=== PATIENT | female | born 1950 | race Caucasian/White ===

== ENCOUNTER → 2017-08-02 | Outpatient (CLI) | payer OTHER ==
[~2017-08-02] MED LIST: FISH OIL 1,0001 EAC5 PO; FOSAMAX 70 MG T70 M1 PO; HYDROCODONE-AP1 EAC6 PO; LISINOPRIL2.5 MG PO; MULTIVITAMINS PO; NAPROSYN500 MG PO; PRINZIDE 20-121 EACH PO; ULTRAM ER100 MG; VYTORIN 10-401 EACH PO; VYTORIN 10-801 EACH PO
--- NOTE | ~2017-08-02 | 2DMMODE ---
[facility] [address] [place] [address] 2 D/M-MODE ECHOCARDIOGRAM Name: RICHELLE RENE Room #: REG [facility]#: [id number] Admission: 08/02/17 Attend Phys: Joseph Uriostegui MD Discharge: Date of : 52 Date of Service: 08/02/17 1234 Report #: [id number] THIS REPORT FOR: //name// APPROVED REPORT Study performed: 08/02/2017 10:54:24 EXAM: Comprehensive 2D, Doppler, and color-flow Echocardiogram Patient Location: Out-Patient Status: routine BSA: 1.52 HR: 86 bpm BP: 176/96 mmHg Rhythm: NSR Other Information Study Quality: Good Indications Positive calcium score scan, HTN 2D Dimensions RVDd: 26.86 mm LVEF(%): 62.84 (>50%) IVSd: 10.10 (7-11mm) LVOT Diam: 19.65 (18-24mm) LVDd: 39.97 mm PWd: 10.05 (7-11mm) Ascending Ao: 28.57 (22-36mm) LVDs: 26.57 (25-40mm) Aortic Root: 27.64 mm Parish's LVEF: 62.84 % Volumes Left Atrial Volume (Systole) Single Plane 4CH: 18.39 mL Single Plane 2CH: 24.45 mL LA ESV Index: 15.00 mL/m2 Aortic Valve AoV Peak Tank.: 1.59 m/s AO Peak Gr.: 10.08 mmHg LVOT Max P.84 mmHg LVOT Max V: 1.21 m/s GEORGINA Vmax: 2.31 cm2 Mitral Valve E/A Ratio: 0.8 MV Decel. Time: 130.68 ms [facility] [address] [place] [address] 2 D/M-MODE ECHOCARDIOGRAM Name: RICHELLE RENE Room #: [facility]#: [id number] Admission: 08/02/17 Attend Phys: Joseph Uriostegui MD Discharge: Date of : 52 Date of Service: 08/02/17 1234 Report #: [id number] MV E Max Tank.: 0.71 m/s MV A Tank.: 0.87 m/s MV PHT: 37.90 ms IVRT: 69.20 ms Pulmonary Valve PV Peak Tank.: 1.00 m/s PV Peak Gr.: 4.00 mmHg Pulmonary Vein P Vein S: 0.64 m/s P Vein A: 0.33 m/s P Vein D: 0.37 m/s P Vein A Dur.: 103.8 msec P Vein S/D Ratio: 1.73 Tricuspid Valve TR Peak Tank.: 2.09 m/s RAP Estimate: 5.00 mmHg TR Peak Gr.: 17.44 mmHg PA Pressure: 22.00 mmHg Left Ventricle The left ventricle is normal size. There is normal LV segmental wall motion. There is normal left ventricular wall thickness. Left ventricular systolic function is normal. LVEF is 55-60%. Mild diastolic dysfunction is present (impaired relaxation pattern). Right Ventricle The right ventricle is normal size. The right ventricular systolic function is normal. Atria The left atrium size is normal. The right atrium size is normal. Aortic Valve The aortic valve is normal in structure. No aortic regurgitation is present. There is no aortic valvular stenosis. Mitral Valve The mitral valve is normal in structure. There is no mitral valve regurgitation noted. No evidence of mitral valve stenosis. Tricuspid Valve The tricuspid valve is normal in structure. Trace tricuspid regurgitation. Estimated PAP is 20-25mmHg. Pulmonic Valve [address] [address] 2 D/M-MODE ECHOCARDIOGRAM Name: RICHELLE RENE Room #: REG [facility]#: [id number] Admission: 08/02/17 Attend Phys: Joseph Uriostegui MD Discharge: Date of : 52 Date of Service: 08/02/17 1234 Report #: [id number] The pulmonary valve is normal in structure. Trace pulmonic regurgitation. Great Vessels The aortic root is normal in size. The ascending aorta is normal in size. IVC is normal in size and collapses >50% with inspiration. Pericardium There is no pericardial effusion. <Conclusion> The left ventricle is normal size. Left ventricular systolic function is normal. Mild diastolic dysfunction is present (impaired relaxation pattern). The right ventricle is normal size. The left atrium size is normal. The aortic valve is normal in structure. The mitral valve is normal in structure. Trace tricuspid regurgitation. Estimated PAP is 20-25mmHg. <ELECTRONICALLY SIGNED> By: Joseph Uriostegui MD 08/02/17 1234 1234 1234 Joseph Uriostegui MD /INF
== END ==
LOC: NUC 07:02
DX: I50.30 Unspecified diastolic (congestive) heart failure (principal); I10 Essential (primary) hypertension; E78.5 Hyperlipidemia, unspecified; R53.83 Other fatigue; R93.1 Abnormal findings on diagnostic imaging of heart and coronary circulation

== ENCOUNTER → 2019-10-16 | Outpatient (CLI) | payer OTHER | LOC: SJCVCIMAG 09:00 | DX: I25.10 Atherosclerotic heart disease of native coronary artery without angina pectoris (principal); E78.00 Pure hypercholesterolemia, unspecified; I10 Essential (primary) hypertension; Z79.82 Long term (current) use of aspirin; Z79.899 Other long term (current) drug therapy ==

== ENCOUNTER → 2020-07-21 | Outpatient (CLI) | payer OTHER | LOC: SJCVC 14:30 | PROVIDERS: ATTEND Internal Medicine Cardiovascular Disease | DX: E78.00 Pure hypercholesterolemia, unspecified (principal); I25.10 Atherosclerotic heart disease of native coronary artery without angina pectoris; I10 Essential (primary) hypertension; Z79.899 Other long term (current) drug therapy ==

== ENCOUNTER → 2020-10-15 | Outpatient (CLI) | payer OTHER | LOC: SJCVCIMAG 10:05 | PROVIDERS: ATTEND Internal Medicine Cardiovascular Disease | DX: I07.1 Rheumatic tricuspid insufficiency (principal); R94.31 Abnormal electrocardiogram [ECG] [EKG]; I11.9 Hypertensive heart disease without heart failure; I25.84 Coronary atherosclerosis due to calcified coronary lesion; E78.00 Pure hypercholesterolemia, unspecified; K21.9 Gastro-esophageal reflux disease without esophagitis; M81.0 Age-related osteoporosis without current pathological fracture; Z90.710 Acquired absence of both cervix and uterus; Z98.890 Other specified postprocedural states; Z88.8 Allergy status to other drugs, medicaments and biological substances; Z79.82 Long term (current) use of aspirin; Z79.899 Other long term (current) drug therapy; Z87.891 Personal history of nicotine dependence; Z82.49 Family history of ischemic heart disease and other diseases of the circulatory system ==

== ENCOUNTER → 2021-10-19 | Outpatient (CLI) | payer BC | LOC: SJCVC 10:07 | PROVIDERS: ATTEND Internal Medicine Cardiovascular Disease | DX: R94.31 Abnormal electrocardiogram [ECG] [EKG] (principal); R93.1 Abnormal findings on diagnostic imaging of heart and coronary circulation; I10 Essential (primary) hypertension; E78.00 Pure hypercholesterolemia, unspecified; K21.9 Gastro-esophageal reflux disease without esophagitis; E78.5 Hyperlipidemia, unspecified; Z88.8 Allergy status to other drugs, medicaments and biological substances; Z79.82 Long term (current) use of aspirin; Z79.899 Other long term (current) drug therapy; Z87.891 Personal history of nicotine dependence; Z72.89 Other problems related to lifestyle; Z82.49 Family history of ischemic heart disease and other diseases of the circulatory system ==